=== PATIENT | female | born 1960 | race Two or more races ===

== ENCOUNTER 2024-09-16 09:17 | Outpatient (CLI) | payer OTHER | END 2024-09-16 09:21 | disposition home or self-care (01) | LOC: RAD 09:17 | DX: M25.551 Pain in right hip (principal); M25.552 Pain in left hip ==

== ENCOUNTER 2024-10-14 10:42 | Outpatient (CLI) | payer OTHER | END 2024-10-14 10:57 | disposition home or self-care (01) | LOC: MRI 10:42 | DX: M48.061 Spinal stenosis, lumbar region without neurogenic claudication (principal) | CPT/HCPCS: 72148 ==

== ENCOUNTER 2024-11-10 13:46 | Outpatient (CLI) | payer OTHER | END 2024-11-10 13:57 | disposition home or self-care (01) | LOC: SONOGRAMA 13:46 | DX: N18.2 Chronic kidney disease, stage 2 (mild) (principal) ==

== ENCOUNTER 2025-01-20 14:22 | Outpatient (CLI) | payer OTHER | END 2025-01-20 14:26 | disposition home or self-care (01) | LOC: MAMO-SONO 14:22 | PROVIDERS: ATTEND Internal Medicine Cardiovascular Disease | DX: N60.11 Diffuse cystic mastopathy of right breast (principal); N60.12 Diffuse cystic mastopathy of left breast; Z12.31 Encounter for screening mammogram for malignant neoplasm of breast ==

== ENCOUNTER 2025-03-16 11:02 | Outpatient (CLI) | payer OTHER | END 2025-03-16 11:10 | disposition home or self-care (01) | LOC: RAD 11:02 | PROVIDERS: ATTEND Internal Medicine Cardiovascular Disease | DX: M12.9 Arthropathy, unspecified (principal) ==

== ENCOUNTER 2025-04-01 14:57 | Outpatient (CLI) | payer OTHER | END 2025-04-01 15:11 | disposition home or self-care (01) | LOC: MRI 14:57 | PROVIDERS: ATTEND Orthopaedic Surgery | DX: M25.562 Pain in left knee (principal); M17.12 Unilateral primary osteoarthritis, left knee; M23.92 Unspecified internal derangement of left knee | CPT/HCPCS: 73721 ==

== ENCOUNTER 2025-07-07 07:50 | Outpatient (CLI) | payer OTHER | END 2025-07-07 07:56 | disposition home or self-care (01) | LOC: MRI 07:50 | PROVIDERS: ATTEND Internal Medicine Endocrinology, Diabetes & Metabolism | DX: D44.10 Neoplasm of uncertain behavior of unspecified adrenal gland (principal) | CPT/HCPCS: 74182; Q9965 ==